=== PATIENT | female | born 1980 | race Caucasian/White ===

== ENCOUNTER → 2016-09-18 | Outpatient (CLI) | payer MEDICAID | LOC: FIMAGING 14:19 | PROVIDERS: ATTEND Physician Assistant | DX: Z13.820 Encounter for screening for osteoporosis (principal); E03.9 Hypothyroidism, unspecified ==

== ENCOUNTER → 2017-04-08 | Outpatient (CLI) | payer MEDICAID | LOC: BMCIMAGING 16:07 | PROVIDERS: ATTEND Orthopaedic Surgery Hand Surgery | DX: M79.644 Pain in right finger(s) (principal) ==

== ENCOUNTER → 2017-05-19 | Outpatient (CLI) | payer MEDICAID | LOC: FIMAGING 13:57 | PROVIDERS: ATTEND Otolaryngology | DX: R51 Headache (principal); Z98.890 Other specified postprocedural states ==

== ENCOUNTER → 2017-08-28 | Outpatient (CLI) | payer MEDICAID | LOC: FIMAGING 19:22 | PROVIDERS: ATTEND Psychiatry & Neurology Neurology | DX: R51 Headache (principal) ==

== ENCOUNTER → 2017-09-04 | Outpatient (CLI) | payer MEDICAID ==
[~2017-09-04] MED LIST: GADOBUTROL 10 ML VIAL IVP ONE
== END ==
LOC: FIMAGING 16:08
PROVIDERS: ATTEND Otolaryngology
DX: R51 Headache (principal)
CPT/HCPCS: A9585

== ENCOUNTER → 2017-09-19 | Outpatient (CLI) | payer MEDICAID | LOC: FIMAGING 21:54 | PROVIDERS: ATTEND Psychiatry & Neurology Neurology | DX: M25.78 Osteophyte, vertebrae (principal); M43.12 Spondylolisthesis, cervical region ==

== ENCOUNTER → 2017-10-26 | Outpatient (CLI) | payer MEDICAID | LOC: FIMAGING 14:45 | PROVIDERS: ATTEND Orthopaedic Surgery Hand Surgery | DX: M48.02 Spinal stenosis, cervical region (principal); M25.441 Effusion, right hand; M77.9 Enthesopathy, unspecified; M79.644 Pain in right finger(s) ==

== ENCOUNTER → 2018-04-30 | Outpatient (CLI) | payer MEDICAID | LOC: FIMAGING 17:24 | PROVIDERS: ATTEND Internal Medicine | DX: T18.9XXA Foreign body of alimentary tract, part unspecified, initial encounter (principal) ==